=== PATIENT | female | born 1960 | race Caucasian/White ===

== ENCOUNTER 2018-09-05 12:14 | Day surgery (SDC) | payer OTHER ==
[~2018-09-05 12:14] MED LIST: ADVAIR 2501 DISK W/1 IH; AMBIEN10 MG PO; CALAN SR120 MG PO; CELEBREX100 MG PO; CYMBALTA60 MG PO; DARVOCET N PO; LOVAZA1 G PO; LYRICA300 MG PO; MICARDIS80 MG PO; PROZAC20 MG PO; SINGULAIR10 MG PO; VALIUM5 MG/M1 PO; ZANTAC300 MG PO
== END 2018-09-06 02:35 | disposition home or self-care (01) ==
LOC: CIR.AMB 12:14
DX: N84.0 Polyp of corpus uteri (principal)